=== PATIENT | female | born 1960 | race Caucasian/White ===

== ENCOUNTER → 2021-11-19 | Outpatient (CLI) | payer BC ==
[~2021-11-19] VITALS: Ht 160 cm; Wt 108.9 kg
[~2021-11-19] MED LIST: albuterol 2.5 MG/3 ML nebule NEB ONE
== END | disposition home or self-care (01) ==
LOC: RT 07:10
PROVIDERS: ATTEND Internal Medicine
DX: J45.998 Other asthma (principal); R94.2 Abnormal results of pulmonary function studies; Z79.899 Other long term (current) drug therapy; Z86.16 Personal history of COVID-19
CPT/HCPCS: 94060; 94760; J7030